=== PATIENT | female | born 2000 | race Caucasian/White ===

== ENCOUNTER 2023-12-21 17:34 | Inpatient (IN) | payer OTHER, SELFPAY ==
[2023-12-21 17:41] VITALS: BP 140/95; PULSE 101; RESP 18; TEMP 36.7; O2SAT 99; BMI 21.8
--- NOTE | 2023-12-21 17:42 | ED.PSYCH ---
HPI - Psych General Chief Complaint: Psychiatric Symptoms Stated Complaint: Si crisis Time Seen by Provider: 12/21/23 17:53 Related Data Home Medications Medication Instructions Recorded Confirmed lamotrigine 25 mg tablet mg 12/21/23 Previous Rx's Medication Instructions Recorded butenafine 1 % topical cream 1 appl topical DAILY 4 weeks #30 09/25/21 (Lotrimin Ultra) grams levofloxacin 500 mg tablet 500 mg PO DAILY 1 week #7 tabs 09/26/21 Allergies Allergy/AdvReac Type Severity Reaction Status Date / Time No Known Allergies Allergy Verified 10/04/21 11:40 [No Known Allergies*] [facility] Social History Social History Alcohol intake: current Smoked in Last 30 Days: Yes Use of substances other than those prescribed or required for medical reasons: Yes Substance Use Type: Marijuana Advance Directives: No Advance Directives Information Provided: No Patient : No Physical Exam Vital Signs: Vital Signs: Last Vital Signs Temp 98.6 F 12/22/23 02:48 Pulse 81 12/22/23 02:48 Resp 18 12/22/23 02:48 BP 111/76 12/22/23 02:48 Pulse Ox 99 12/22/23 02:48 O2 Del Method Room Air 12/22/23 02:48 BMI result Body Mass Index 21.8 Course Course Course Narrative: This is a rapid medical exam: Additional HPI, ROS, PE not included below will be deferred to primary provider. Patient is a 23-year-old female presenting to the emergency department reporting that she is having thoughts of hurting herself for the past few days. No specific plan, thoughts of cutting self or driving car into a tree. Was just started on 25mg of Lamictal 10 days ago, has had anorexia, insomnia, suicidal ideation. Plan: med clearance then CARE team eval Reevaluation(s) Reevaluation #1: Physician observation continued. VS stable, no acute events overnight inpatient bed search Time: 08:10 Medications Administered Discontinued Medications Generic Name Dose Route Start Last Admin Trade Name Freq PRN Reason Stop Dose Admin Nicotine Polacrilex 2 mg 12/21/23 21:00 12/21/23 21:34 Nicotine Polacrilex 2 Mg Gum BUCCAL 12/21/23 21:01 2 mg ONCE ONE Administration Medical Decision Making Lab Data 12/21/23 18:18 12/22/23 06:29 Labs: Lab Results 12/21/23 12/22/23 Range/Units 18:18 06:29 WBC 7.6 (4.8-10.8) X10*3/uL RBC 4.49 (4.20-5.50) X10*6/uL Hgb 13.7 (12.0-16.0) g/dl Hct 39.0 (37.0-47.0) % MCV 86.9 (80.0-98.0) fL MCH 30.5 (27.0-33.0) pg MCHC 35.1 H (31.0-35.0) g/dl RDW 12.8 (11.0-16.0) % Plt Count 363 (160-400) X10*3/uL MPV 8.7 L (9.4-12.3) fL Immature Gran % (Auto) 0.3 (0.0-0.4) % Neut % (Auto) 54.9 (45-73) % Lymph % (Auto) 38.2 (20-40) % [place] % (Auto) 5.5 (2-11) % Eos % (Auto) 0.7 (0-4) % Baso % (Auto) 0.4 (0-2) % Lymph # (Auto) 2.9 (1.2-4.9) X10*3/uL [place] # (Auto) 0.4 (0.1-1.2) X10*3/uL Eos # (Auto) 0.1 (0.0-0.4) X10*3/uL Baso # (Auto) 0.0 (0.0-0.2) X10*3/uL Abs Immat Gran (auto) 0.02 (0.00-0.03) X10*3/uL Absolute Neuts (auto) 4.2 (2.0-8.3) x10*3/uL Absolute Nucleated RBC 0.000 (0.0-0.012) X10*3/uL Nucleated RBC % (auto) 0.0 (0.0-0.2) /100WBC Sodium 142 138 (135-145) mmol/L Potassium 3.5 4.1 (3.3-5.1) mmol/L Chloride 110 H 106 (96-108) mmol/L Carbon Dioxide 17 L 22 (22-29) mmol/L Anion Gap 19 14 (12-20) BUN 12 10 (9-16) mg/dL Creatinine 0.78 0.72 (0.5-1.4) mg/dL Estim Creat Clear Calc 106.8 115.7 Estimated GFR > 60 > 60 Random Glucose 97 86 (60-115) mg/dL Calcium 9.1 8.9 (8.4-10.2) mg/dL Total Bilirubin 0.5 1.4 H (0.0-1.0) mg/dL AST 25 23 (5-31) U/L ALT 21 20 (0-31) U/L Alkaline Phosphatase 76 69 (39-117) U/L Total Protein 7.2 6.6 (6.5-8.0) g/dL Albumin 4.5 4.1 (3.5-5.0) g/dL Beta HCG, Quant < 2 mIU/mL Urine Color Yellow Urine Appearance Clear Urine pH 6.0 (5.0-9.0) Ur Specific [place] 1.020 (1.005-1.025) Urine Protein 30 (1+) H (Neg-Trace) mg/dL Urine Glucose (UA) Negative (Negative) mg/dL Urine Ketones 15 (Negative) mg/dL Urine Blood Negative (Negative) Urine Nitrite Negative (Negative) Ur Leukocyte Esterase Negative (Negative) Urine RBC 0-2 (0-2) /HPF Urine WBC 0-5 (0-5) /HPF Ur Squamous Epith Cells 3-5 (0-2) /HPF Urine Bacteria Trace (None Seen) Hyaline Casts 0-2 (0-2) /LPF Urine Test NEGATIVE (NEGATIVE) Salicylates < 5.0 L (15-30) mg/dL Urine Opiates Screen Not Detected (Not Detect) Urine Fentanyl Screen Not Detected (Not Detect) Acetaminophen < 3 (<30) mcg/mL Ur Barbiturates Screen Not Detected (Not Detect) Ur Phencyclidine Scrn Not Detected (Not Detect) Ur Amphetamines Screen Not Detected (Not Detect) U Benzodiazepines Scrn Not Detected (Not Detect) Urine Cocaine Screen Not Detected (Not Detect) U Marijuana (THC) Screen Not Detected (Not Detect) Ethyl Alcohol 259 mg/dL COVID-19 (ROÁMN) Negative (Negative) COVID-19 Clin Com See Note Discharge Plan Discharge Clinical Impression: Depression Patient Disposition: Still a Patient Prescriptions: No Action levofloxacin 500 mg tablet 500 mg PO DAILY 7 Days Qty: 7 0RF lamotrigine 25 mg tablet butenafine [Lotrimin Ultra] 1 % cream 1 appl topical DAILY 28 Days Qty: 30 1RF Interventions: [place]-Suicide Risk Severity Scale Last Done: 12/21/23 17:58
--- NOTE | 2023-12-21 18:11 | PC.NURSE ---
PATIENT DOES ADMIT TO SELF HARM HAS NOT TOLD ANYONE.
[2023-12-21 18:25] LABS: MANUAL DIFF FLAG NO
[2023-12-21 18:26] LABS: Basophils Percent Auto 0.4 % (0-2); Eosinophils Absolute Auto 0.1 X10*3/uL (0.0-0.4); Eosinophils Percent Auto 0.7 % (0-4); Hemoglobin 13.7 g/dl (12.0-16.0); Imm Gran Abs Auto 0.02 X10*3/uL (0.00-0.03); Imm Gran Pct Auto 0.3 % (0.0-0.4); Lymphocytes Absolute Auto 2.9 X10*3/uL (1.2-4.9); Lymphocytes Percent Auto 38.2 % (20-40); Mean Corpuscular HGB Conc 35.1 g/dl (31.0-35.0); Mean Corpuscular Hemoglobin 30.5 pg (27.0-33.0); Mean Corpuscular Volume 86.9 fL (80.0-98.0); Mean Platelet Volume 8.7 fL (9.4-12.3); Monocytes Absolute Auto 0.4 X10*3/uL (0.1-1.2); Monocytes Percent Auto 5.5 % (2-11); Neutrophils Absolute Auto 4.2 x10*3/uL (2.0-8.3); Neutrophils Percent Auto 54.9 % (45-73); Platelet Count 363 X10*3/uL (160-400); Red Blood Count 4.49 X10*6/uL (4.20-5.50); Red Cell Distribution Width 12.8 % (11.0-16.0); White Blood Count 7.6 X10*3/uL (4.8-10.8)
[2023-12-21 18:29] LABS: Appearance Urine Clear; Color Urine Yellow; Glucose Urine UA Negative (Negative); Leukocyte Esterase Urine Negative (Negative); Nitrite Urine Negative (Negative); UMIC TRIGGER UACC YES; Urine Blood Negative (Negative); Urine Ketones 15 mg/dL (Negative); Urine Protein 30 (1+) mg/dL (Neg-Trace)
[2023-12-21 18:30] LABS: UPreg QC Valid YES; Urine Pregnancy NEGATIVE (NEGATIVE)
--- NOTE | 2023-12-21 18:31 | PC.NURSE ---
PATIENT STATES STARTED NEW MED LAMOTRIGINE 25MG.
[2023-12-21 18:32] LABS: Bacteria Urine Trace (None Seen); Hyaline Casts Urine 0-2 /LPF (0-2); RBC Urine 0-2 /HPF (0-2); WBC Urine 0-5 /HPF (0-5)
[2023-12-21 18:40] LABS: Amphetamine Screen Urine Not Detected (Not Detect); Barbiturates, Urine Not Detected (Not Detect); Cannabinoid Screen Urine Not Detected (Not Detect); Cocaine Screen Urine Not Detected (Not Detect); Fentanyl, urine Not Detected (Not Detect); Opiate Screen Urine Not Detected (Not Detect); Phencyclidine Screen Urine Not Detected (Not Detect)
[2023-12-21 18:44] LABS: Acetaminophen LAB < 3 mcg/mL (<30); Benzodiazepines Screen Urine Not Detected (Not Detect); Salicylate < 5.0 mg/dL (15-30)
[2023-12-21 18:45] LABS: COVID-19 Test Negative (Negative); IDNOW Serial# 152EDE1D
[2023-12-21 18:50] LABS: Alanine Aminotransferase 21 U/L (0-31); Albumin Level 4.5 g/dL (3.5-5.0); Alkaline Phosphatase 76 U/L (39-117); Anion Gap 19 (12-20); Aspartate Amino Transferase 25 U/L (5-31); Bilirubin Total 0.5 mg/dL (0.0-1.0); Blood Urea Nitrogen 12 mg/dL (9-16); Calcium 9.1 mg/dL (8.4-10.2); Carbon Dioxide 17 mmol/L (22-29); Chloride 110 mmol/L (96-108); Creatinine Clr Calc Pharmacy 106.8; Estimated Glomerular Filt Rate > 60; Ethanol 259 mg/dL; Glucose Random 97 mg/dL (60-115); Potassium 3.5 mmol/L (3.3-5.1); Sodium 142 mmol/L (135-145); Total Protein 7.2 g/dL (6.5-8.0)
[2023-12-21 18:52] LABS: HCG Quantitative < 2 mIU/mL
--- NOTE | 2023-12-21 19:36 | PC.NURSE ---
assumed care at 1900@ pt talking to N at this time
[2023-12-21] MEDS: Nicotine Polacrilex 2 MG GUM BUCCAL (21:34)
--- NOTE | 2023-12-22 02:35 | ED.GENADULT ---
HPI - General Adult General Chief complaint: Psychiatric Symptoms Stated complaint: Si crisis Time Seen by Provider: 12/21/23 17:53 Source: patient Mode of arrival: ambulatory Limitations: no limitations History of Present Illness HPI narrative: 23-year-old female presents to ED for suicidal ideation. Patient would like to drive into a tree or kill herself by cutting herself. Patient also states increased drinking lately. Patient wants help. Related Data Home Medications Medication Instructions Recorded Confirmed lamotrigine 25 mg tablet 25 mg PO DAILY 12/21/23 12/22/23 Allergies Allergy/AdvReac Type Severity Reaction Status Date / Time No Known Allergies Allergy Verified 10/04/21 11:40 [No Known Allergies*] Review of Systems Review of Systems: Suicidal and depressed. Denies any physical complaint Yes all other systems are reviewed and are negative PMFSH Social History Social History Household Members: Family Alcohol intake: current Patient Tobacco Use Status: Never used Tobacco Smoked in Last 30 Days: Yes e-Cigarette/Vaping Use: Currently Using Frequency of e-Cigarette/Vaping Use: daily Patient Interested in Nicotine Replacement: Yes (lozenge) Patient Given Instructions on How to Stop Smoking: No Second Hand Smoke Exposure: No Use of substances other than those prescribed or required for medical reasons: Yes Substance Use Type: Marijuana Substance Use Frequency: Socially Last Used Substance: Days (ago) Currently Displaying Signs/Symptoms of Drug Intoxication Withdrawal: No Any prior treatment program specific to substance use: No Have you been hit, kicked, punched, or otherwise hurt by someone within the past year? If so, by whom?: No Do you feel safe in your current relationship?: Yes Is there a partner from a previous relationship who is making you feel unsafe now?: No Are you made to feel afraid or neglected: No Advance Directives: No Advance Directives Information Provided: No Do you have thoughts of harming others: None Do you have a plan to hurt others: No Plan Recently lost weight without trying: No Eating poorly because of decreased appetite: Yes Nutrition Risks: No Nutritional Risk Patient : No : No Poor oral hygiene: No Physical Exam ED Vital Signs: Vital Signs - 24 hr 12/21/23 17:41 12/22/23 02:48 12/22/23 09:49 Temperature 98.0 F 98.6 F 99.1 F Pulse Rate 101 H 81 80 Respiratory Rate 18 18 18 Blood Pressure 140/95 H 111/76 115/65 Pulse Oximetry 99 99 99 Oxygen Delivery Method Room Air Room Air Room Air BMI result Body Mass Index 21.8 Const General: cooperative, healthy appearing, comfortable, no acute distress, well developed, alert, awake and Physically active Orientation/consciousness: oriented to person, oriented to place, oriented to time and patient oriented x3 [facility] Head: Yes normal to inspection, Yes No palpable skull fracture present, Yes normocephalic, Yes atraumatic and No abrasion Eyes General: appearance normal, both eyes and all related structures Neck Neck: Yes normal visual inspection, Yes full ROM, Yes no lymphadenopathy, Yes no meningeal signs, Yes trachea midline, Yes supple, No anterior neck swelling and No tender Chest Chest palpation & inspection: normal inspection of the chest and normal palpation of entire chest wall Resp Effort & Inspection: normal respiratory effort and able to speak in complete sentences Auscultation: clear to auscultation bilaterally Cardio Jugular venous distension: no JVD Heart sounds: S1 normal heart sound present and S2 normal heart sound present GI Inspection: Yes normal to inspection Palpation (GI): Soft to palpation, not firm, nontender, no guarding and not rigid General: No CVA tenderness and Yes no CVA tenderness Back/Spine/Pelvis Back: no CVA tenderness, No CVA tenderness and No back tenderness Skin General skin exam: no rashes or lesions noted, elasticity normal and turgor normal Neuro General: oriented to person, oriented to place, oriented to time, patient oriented x3, gait normal, tone normal, moves all extremities, Normal light touch and pain sensation, no meningeal signs, no focal motor deficits, CN's II-XI intact bilaterally and normal sensation to monofilament Extrem General: Yes normal to inspection and Yes full ROM Psych Appearance: grossly normal, well kempt and not disheveled Medications Administered Generic Name Dose Route Start Last Admin Trade Name Freq PRN Reason Stop Dose Admin Lorazepam 1 mg 12/22/23 14:11 12/22/23 14:39 Lorazepam 1 Mg Tablet PO 1 mg Q2H PRN Administration CIWA 6-12 Discontinued Medications Generic Name Dose Route Start Last Admin Trade Name Freq PRN Reason Stop Dose Admin Nicotine Polacrilex 2 mg 12/21/23 21:00 12/21/23 21:34 Nicotine Polacrilex 2 Mg Gum BUCCAL 12/21/23 21:01 2 mg ONCE ONE Administration Medical Decision Making Medical Decision Making MDM Narrative: 23-year-old female presents to ED for suicidal ideation and depression. Patient seen and evaluated by care team consult who states patient is a voluntary admission. Patient has been stable and not any distress. Carbon dioxide 17. Rest of electrolytes are normal. Patient does have history of alcoholism. Patient drinking plenty of oral fluids. Not in any distress or withdrawal. Will repeat chemistry in the morning. patient is a [place] admission as per Care TEAM. Differential Diagnosis Differential Diagnoses: The differential diagnosis associated with the presentation includes (Depression suicidal) Consult Healthcare Provider Management of the patient was discussed with: Career Technical Education Teacher (Care team) Lab Data [facility] Lab Attestation statement: I reviewed the patient's lab results. 12/21/23 18:18 12/22/23 06:29 Labs: Lab Results 12/21/23 12/22/23 Range/Units 18:18 06:29 WBC 7.6 (4.8-10.8) X10*3/uL RBC 4.49 (4.20-5.50) X10*6/uL Hgb 13.7 (12.0-16.0) g/dl Hct 39.0 (37.0-47.0) % MCV 86.9 (80.0-98.0) fL MCH 30.5 (27.0-33.0) pg MCHC 35.1 H (31.0-35.0) g/dl RDW 12.8 (11.0-16.0) % Plt Count 363 (160-400) X10*3/uL MPV 8.7 L (9.4-12.3) fL Immature Gran % (Auto) 0.3 (0.0-0.4) % Neut % (Auto) 54.9 (45-73) % Lymph % (Auto) 38.2 (20-40) % [place] % (Auto) 5.5 (2-11) % Eos % (Auto) 0.7 (0-4) % Baso % (Auto) 0.4 (0-2) % Lymph # (Auto) 2.9 (1.2-4.9) X10*3/uL [place] # (Auto) 0.4 (0.1-1.2) X10*3/uL Eos # (Auto) 0.1 (0.0-0.4) X10*3/uL Baso # (Auto) 0.0 (0.0-0.2) X10*3/uL Abs Immat Gran (auto) 0.02 (0.00-0.03) X10*3/uL Absolute Neuts (auto) 4.2 (2.0-8.3) x10*3/uL Absolute Nucleated RBC 0.000 (0.0-0.012) X10*3/uL Nucleated RBC % (auto) 0.0 (0.0-0.2) /100WBC Sodium 142 138 (135-145) mmol/L Potassium 3.5 4.1 (3.3-5.1) mmol/L Chloride 110 H 106 (96-108) mmol/L Carbon Dioxide 17 L 22 (22-29) mmol/L Anion Gap 19 14 (12-20) BUN 12 10 (9-16) mg/dL Creatinine 0.78 0.72 (0.5-1.4) mg/dL Estim Creat Clear Calc 106.8 115.7 Estimated GFR > 60 > 60 Random Glucose 97 86 (60-115) mg/dL Calcium 9.1 8.9 (8.4-10.2) mg/dL Total Bilirubin 0.5 1.4 H (0.0-1.0) mg/dL AST 25 23 (5-31) U/L ALT 21 20 (0-31) U/L Alkaline Phosphatase 76 69 (39-117) U/L Total Protein 7.2 6.6 (6.5-8.0) g/dL Albumin 4.5 4.1 (3.5-5.0) g/dL Beta HCG, Quant < 2 mIU/mL Urine Color Yellow Urine Appearance Clear Urine pH 6.0 (5.0-9.0) Ur Specific [place] 1.020 (1.005-1.025) Urine Protein 30 (1+) H (Neg-Trace) mg/dL Urine Glucose (UA) Negative (Negative) mg/dL Urine Ketones 15 (Negative) mg/dL Urine Blood Negative (Negative) Urine Nitrite Negative (Negative) Ur Leukocyte Esterase Negative (Negative) Urine RBC 0-2 (0-2) /HPF Urine WBC 0-5 (0-5) /HPF Ur Squamous Epith Cells 3-5 (0-2) /HPF Urine Bacteria Trace (None Seen) Hyaline Casts 0-2 (0-2) /LPF Urine Test NEGATIVE (NEGATIVE) Salicylates < 5.0 L (15-30) mg/dL Urine Opiates Screen Not Detected (Not Detect) Urine Fentanyl Screen Not Detected (Not Detect) Acetaminophen < 3 (<30) mcg/mL Ur Barbiturates Screen Not Detected (Not Detect) Ur Phencyclidine Scrn Not Detected (Not Detect) Ur Amphetamines Screen Not Detected (Not Detect) U Benzodiazepines Scrn Not Detected (Not Detect) Urine Cocaine Screen Not Detected (Not Detect) U Marijuana (THC) Screen Not Detected (Not Detect) Ethyl Alcohol 259 mg/dL COVID-19 (ROMÁN) Negative (Negative) COVID-19 Clin Com See Note Independent Historian Clinical information obtained from an independent historian. History obtained from or confirmed by: Other (Patient) External Record Review External record reviewed: Other (Prior visit) Discharge Plan Discharge Clinical Impression: Depression Patient Disposition: Still a Patient Interventions: Admission Worksheet (ED) Last Done: 12/22/23 13:42 Discharge Date/Time: 12/22/23 13:43
[2023-12-22 02:48] VITALS: BP 111/76; PULSE 81; RESP 18; TEMP 37; O2SAT 99
[2023-12-22 07:01] LABS: Alanine Aminotransferase 20 U/L (0-31); Albumin Level 4.1 g/dL (3.5-5.0); Alkaline Phosphatase 69 U/L (39-117); Anion Gap 14 (12-20); Aspartate Amino Transferase 23 U/L (5-31); Bilirubin Total 1.4 mg/dL (0.0-1.0); Blood Urea Nitrogen 10 mg/dL (9-16); Calcium 8.9 mg/dL (8.4-10.2); Carbon Dioxide 22 mmol/L (22-29); Chloride 106 mmol/L (96-108); Creatinine Clr Calc Pharmacy 115.7; Estimated Glomerular Filt Rate > 60; Glucose Random 86 mg/dL (60-115); Potassium 4.1 mmol/L (3.3-5.1); Sodium 138 mmol/L (135-145); Total Protein 6.6 g/dL (6.5-8.0)
--- NOTE | 2023-12-22 07:30 | PC.NURSE ---
Pt's mother in to visit. Pleasant visit observed.
[2023-12-22 09:49] VITALS: BP 115/65; PULSE 80; RESP 18; TEMP 37.3; O2SAT 99
--- NOTE | 2023-12-22 12:30 | PC.NURSE ---
Nurse to nurse given to Jeannette. Pt will be transferred to M3 unit in about an hour.
[2023-12-22 13:50] VITALS: BP 128/72; PULSE 76; RESP 16; TEMP 37; O2SAT 98
[2023-12-22] MEDS: LORazepam 1 MG TABLET PO (14:39)
[2023-12-22 15:40] VITALS: BMI 22.1
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
[2023-12-22 20:00] VITALS: BP 105/64; PULSE 70; RESP 16; TEMP 36.8; O2SAT 98
[2023-12-23 07:45] VITALS: BP 107/71; PULSE 83; RESP 18; TEMP 36.6; O2SAT 97
[2023-12-23 08:35] LABS: Alanine Aminotransferase 19 U/L (0-31); Albumin Level 4.3 g/dL (3.5-5.0); Alkaline Phosphatase 71 U/L (39-117); Anion Gap 14 (12-20); Aspartate Amino Transferase 22 U/L (5-31); Bilirubin Total 1.4 mg/dL (0.0-1.0); Blood Urea Nitrogen 10 mg/dL (9-16); Calcium 9.1 mg/dL (8.4-10.2); Carbon Dioxide 21 mmol/L (22-29); Chloride 107 mmol/L (96-108); Cholesterol 156 mg/dL (<200); Estimated Glomerular Filt Rate > 60; Glucose Fasting 89 mg/dL (60-99); HDL Cholesterol 72 mg/dL (>40); LDL Cholesterol Calculated 70 mg/dL (<100); Potassium 4.3 mmol/L (3.3-5.1); Sodium 138 mmol/L (135-145); Triglycerides 71 mg/dL (<150)
[2023-12-23] MEDS: Folic Acid 1 MG TABLET PO (08:51)
[2023-12-23] MEDS: Thiamine HCL 100 MG TABLET PO (08:51)
[2023-12-23] MEDS: Multivitamin TABLET 1 TAB PO (08:51)
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
[2023-12-23] MEDS: Naltrexone HCl 50 MG TABLET 25 MG PO (12:34)
--- NOTE | 2023-12-23 15:03 | MHC.RECOVRN ---
Met with pt on M3 after consult placed to Addiction Medicine for alcohol use. Pt had presented to the ED for increased SI and depression. Upon evaluation, pt admitted for mood disorder, PTSD, and suicidality. Pt awake, alert, easily engages in conversation. Pt reports binge drinking since age 18, had first drink at age 16. Reports family hx alcohol use. During a binge, pt reports drinking 10+ nips daily x a few days. Pt reports various amounts of time in between periods of alcohol use. Pt denies withdrawal symptoms, denies hx seizures. The longest period of time pt has consumed alcohol daily was in February 2023 x 6 months. 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 Pt reports having supportive family, friends, and partner. Pt reports partner drinks socially. Pt has never sought tx for alcohol use. Discussed recovery support options and resources, pt interested in [facility], specifically naltrexone. Pt would like to initiate medication while inpatient if possible and continue treatment at the [facility]. Provided pt with written resources as well as t/w contact information if needed. Pt denies questions or concerns. Discussed with Simran Nascimento APRN. Pt has [facility] intake appt 12/28 at 2PM, SW aware.
[2023-12-23] MEDS: Divalproex Sodium 250 MG TABLET.DR PO ×2 (16:39→20:38)
[2023-12-23] MEDS: QUEtiapine Fumarate 25 MG TABLET PO ×2 (16:39→20:38)
[2023-12-23 20:05] VITALS: BP 114/63; PULSE 70; RESP 16; TEMP 36.6; O2SAT 98
[2023-12-24 07:25] VITALS: BP 97/65; PULSE 74; RESP 16; TEMP 36.3; O2SAT 97
[2023-12-24] MEDS: Naltrexone HCl 50 MG TABLET 25 MG PO (08:30)
[2023-12-24] MEDS: Multivitamin TABLET 1 TAB PO (08:31)
[2023-12-24] MEDS: Folic Acid 1 MG TABLET PO (08:31)
[2023-12-24] MEDS: Thiamine HCL 100 MG TABLET PO (08:31)
[2023-12-24] MEDS: Divalproex Sodium 250 MG TABLET.DR PO ×2 (08:31→20:57)
[2023-12-24] MEDS: QUEtiapine Fumarate 25 MG TABLET PO ×2 (08:31→20:57)
[2023-12-24 19:45] VITALS: BP 118/79; PULSE 77; RESP 14; TEMP 36.8; O2SAT 98
--- NOTE | 2023-12-24 21:24 | HO.PSYCHPN ---
Subjective Subjective Date of Service: 12/24/23 Reason For Visit: si depression Subjective Notes: Conditional Voluntary and 3 Day Interim History: Pt seen in psychiatric follow-up. Patient has been cooperative she does have a 3 day notice. She is denying active self-harm. She was started on quetiapine 25 twice a day Depakote 250 b.i.d. she is agreeable to [facility] program Medication Compliance: Yes Mental Status Exam Mental Status Exam Narrative: Pt is alert and oriented; behavior is cooperative, tearful and calm; dressed in casual attire; mood is described as anxious and depressed ; eye contact appropriate; Speech is normal rate, volume and prosody and not pressured; thought process is organized and goal directed; Thought content is on tx and diagnosis otherwise pertinent to relevant topics and without any delusional content, paranoid ideations or grandiosity; denies SI/HI/VH/AH.seems motivated for tx Diagnostics Vital Signs (24Hr): Vital Signs - 24 hr 12/24/23 07:25 12/24/23 19:45 Temperature 97.3 F 98.2 F Pulse Rate 74 77 Respiratory Rate 16 14 Blood Pressure 97/65 118/79 Pulse Oximetry 97 98 Oxygen Delivery Method Room Air Room Air BMI result Body Mass Index 22.1 Labs 12/21/23 18:18 12/23/23 07:53 Labs: Laboratory Results - last 48 hr 12/23/23 07:53 Sodium 138 Potassium 4.3 Chloride 107 Carbon Dioxide 21 L Anion Gap 14 BUN 10 Creatinine 0.70 Estim Creat Clear Calc 119.0 Estimated GFR > 60 Fasting Glucose 89 Calcium 9.1 Total Bilirubin 1.4 H AST 22 ALT 19 Alkaline Phosphatase 71 Total Protein 7.0 Albumin 4.3 Triglycerides 71 Cholesterol 156 LDL Cholesterol, Calc 70 HDL Cholesterol 72 Medications Medications Current Medications Acetaminophen (Acetaminophen 325 Mg Tablet) 650 mg PO Q6H PRN PRN Reason: Headache/Pain Mild Scale (1-3) Al Hydroxide/Mg Hydroxide (Magnesium Hydrox/Alum Hydrox 30 Ml Oral.Susp) 30 ml PO Q6H PRN PRN Reason: Heartburn/Nausea Divalproex Sodium (Divalproex Sodium 250 Mg Tablet.) 250 mg PO BID [facility] Last Admin: 12/24/23 20:57 Dose: 250 mg Folic Acid (Folic Acid 1 Mg Tablet) 1 mg PO DAILY [facility] Last Admin: 12/24/23 08:31 Dose: 1 mg Hydroxyzine HCl (Hydroxyzine Hcl 25 Mg Tablet) 25 mg PO Q6H PRN PRN Reason: Anxiety Lorazepam (Lorazepam 1 Mg Tablet) 1 mg PO Q2H PRN PRN Reason: CIWA 6-12 Last Admin: 12/22/23 14:39 Dose: 1 mg Lorazepam (Lorazepam 1 Mg Tablet) 2 mg PO Q2H PRN PRN Reason: CIWA 13 and above Magnesium Hydroxide (Milk Of Magnesia 30 Ml Oral.Susp) 30 ml PO DAILY PRN PRN Reason: Constipation Multivitamins/Vitamin C (Multivitamin Tablet) 1 tab PO DAILY [facility] Last Admin: 12/24/23 08:31 Dose: 1 tab Naltrexone HCl (Naltrexone Hcl 50 Mg Tablet) 25 mg PO DAILY [facility] Stop: 12/25/23 09:01 Last Admin: 12/24/23 08:30 Dose: 25 mg Naltrexone HCl (Naltrexone Hcl 50 Mg Tablet) 50 mg PO DAILY [facility] Nicotine Polacrilex (Nicotine Polacrilex 2 Mg Gum) 4 mg BUCCAL Q2H PRN PRN Reason: Nicotine Cravings Ondansetron HCl (Ondansetron Odt 4 Mg Tab.Rapdis) 4 mg TRANSLINGU Q8H PRN PRN Reason: Nausea and Vomiting Quetiapine Fumarate (Quetiapine Fumarate 25 Mg Tablet) 25 mg PO BID [facility] Last Admin: 12/24/23 20:57 Dose: 25 mg Thiamine HCl (Thiamine Hcl 100 Mg Tablet) 100 mg PO DAILY [facility] Last Admin: 12/24/23 08:31 Dose: 100 mg Trazodone HCl (Trazodone Hcl 50 Mg Tablet) 50 mg PO BEDTIME MRX1 PRN PRN Reason: Insomnia Allergies Allergies Allergy/AdvReac Type Severity Reaction Status Date / Time No Known Allergies Allergy Verified 10/04/21 11:40 [No Known Allergies*] Assessment & Plan Assessment & Plan (1) Bipolar 2 disorder: Status: Acute Code(s): F31.81 - Bipolar II disorder (2) PTSD (post-traumatic stress disorder): Status: Acute Code(s): F43.10 - Post-traumatic stress disorder, unspecified (3) ETOH abuse: Status: Acute Code(s): F10.10 - Alcohol abuse, uncomplicated Plan Patient is a 23 year old female with hx of Bipolar d/o and ETOH abuse who self presented to ER d/t suicidal ideation secondary to increased depressive symptoms and alcohol use. Plan: CV 15 minute safety checks [facility] addiction medicine consult start: depakote 250mg PO BID Seroquel 25mg PO BID 12/24/23 Patient given literature to review continue Depakote quetiapine patient's 3 day notice states wants to do partial hospital was started on naltrexone Reason for continued inpatient stay Substantial Risk for: harm to self and rapid decompensation Time Spent With Patient Time: Total time managing care of this patient today ____ minutes.
[2023-12-25 07:00] VITALS: BMI 22.2
[2023-12-25 07:40] VITALS: BP 111/63; PULSE 75; RESP 14; TEMP 36.8; O2SAT 100
[2023-12-25] MEDS: Naltrexone HCl 50 MG TABLET 25 MG PO (08:01)
[2023-12-25] MEDS: Folic Acid 1 MG TABLET PO (08:02)
[2023-12-25] MEDS: Thiamine HCL 100 MG TABLET PO (08:02)
[2023-12-25] MEDS: QUEtiapine Fumarate 25 MG TABLET PO ×2 (08:02→21:02)
[2023-12-25] MEDS: Divalproex Sodium 250 MG TABLET.DR PO ×2 (08:02→21:02)
[2023-12-25] MEDS: Multivitamin TABLET 1 TAB PO (08:02)
[2023-12-25 09:37] LABS: Valproate 42.3 mcg/mL (50.0-100.0)
--- NOTE | 2023-12-25 11:56 | HO.PSYCHPN ---
Subjective Subjective Date of Service: 12/25/23 Reason For Visit: si depression Subjective Notes: 3 Day Interim History: Reviewed with Dr. Anne. Active on unit, attending groups, social with peers. pt reports feeling good today; pt stated, I'm looking forward to going home and being with my family and dog . Pt reports she plans on following up with her outpatient providers and attending PHP. Pt stated, I feel better than when I first came in here . Valproic acid level 42.3 on 12/25/23. pt to be discharged on 3 day tomorrow. Medication Compliance: Yes Side effects from medications: No Attending Groups: Yes Review of Systems Constitutional: Reports as per HPI Eyes: Reports as per HPI Reports as per HPI Cardiovascular: Reports as per HPI Respiratory: Reports as per HPI Gastrointestinal: Reports as per HPI Musculoskeletal: Reports as per HPI Skin/Breast: Reports as per HPI Reports as per HPI Psychiatric: Reports as per HPI Endocrine: Reports as per HPI Hematologic/Lymphatic: Reports as per HPI Allergic/Immunologic: Reports as per HPI Mental Status Exam Mental Status Exam Narrative: Pt is alert and oriented; behavior is cooperative, tearful and calm; dressed in casual attire; mood is described as good ; eye contact appropriate; Speech is normal rate, volume and prosody and not pressured; thought process is organized and goal directed; Thought content is on tx; denies SI/HI/VH/AH Diagnostics Vital Signs (24Hr): Vital Signs - 24 hr 12/24/23 19:45 12/25/23 07:40 Temperature 98.2 F 98.2 F Pulse Rate 77 75 Respiratory Rate 14 14 Blood Pressure 118/79 111/63 Pulse Oximetry 98 100 Oxygen Delivery Method Room Air Room Air BMI result Body Mass Index 22.2 Labs 12/21/23 18:18 12/23/23 07:53 Labs: Laboratory Results - last 48 hr 12/25/23 08:36 Valproic Acid 42.3 L Medications Medications Current Medications Acetaminophen (Acetaminophen 325 Mg Tablet) 650 mg PO Q6H PRN PRN Reason: Headache/Pain Mild Scale (1-3) Al Hydroxide/Mg Hydroxide (Magnesium Hydrox/Alum Hydrox 30 Ml Oral.Susp) 30 ml PO Q6H PRN PRN Reason: Heartburn/Nausea Divalproex Sodium (Divalproex Sodium 250 Mg Tablet.) 250 mg PO BID [facility] Last Admin: 12/25/23 08:02 Dose: 250 mg Folic Acid (Folic Acid 1 Mg Tablet) 1 mg PO DAILY [facility] Last Admin: 12/25/23 08:02 Dose: 1 mg Hydroxyzine HCl (Hydroxyzine Hcl 25 Mg Tablet) 25 mg PO Q6H PRN PRN Reason: Anxiety Lorazepam (Lorazepam 1 Mg Tablet) 1 mg PO Q2H PRN PRN Reason: CIWA 6-12 Last Admin: 12/22/23 14:39 Dose: 1 mg Lorazepam (Lorazepam 1 Mg Tablet) 2 mg PO Q2H PRN PRN Reason: CIWA 13 and above Magnesium Hydroxide (Milk Of Magnesia 30 Ml Oral.Susp) 30 ml PO DAILY PRN PRN Reason: Constipation Multivitamins/Vitamin C (Multivitamin Tablet) 1 tab PO DAILY [facility] Last Admin: 12/25/23 08:02 Dose: 1 tab Naltrexone HCl (Naltrexone Hcl 50 Mg Tablet) 50 mg PO DAILY [facility] Nicotine Polacrilex (Nicotine Polacrilex 2 Mg Gum) 4 mg BUCCAL Q2H PRN PRN Reason: Nicotine Cravings Ondansetron HCl (Ondansetron Odt 4 Mg Tab.Rapdis) 4 mg TRANSLINGU Q8H PRN PRN Reason: Nausea and Vomiting Quetiapine Fumarate (Quetiapine Fumarate 25 Mg Tablet) 25 mg PO BID [facility] Last Admin: 12/25/23 08:02 Dose: 25 mg Thiamine HCl (Thiamine Hcl 100 Mg Tablet) 100 mg PO DAILY [facility] Last Admin: 12/25/23 08:02 Dose: 100 mg Trazodone HCl (Trazodone Hcl 50 Mg Tablet) 50 mg PO BEDTIME MRX1 PRN PRN Reason: Insomnia Allergies Allergies Allergy/AdvReac Type Severity Reaction Status Date / Time No Known Allergies Allergy Verified 10/04/21 11:40 [No Known Allergies*] Assessment & Plan Assessment & Plan (1) Bipolar 2 disorder: Status: Acute Code(s): F31.81 - Bipolar II disorder (2) PTSD (post-traumatic stress disorder): Status: Acute Code(s): F43.10 - Post-traumatic stress disorder, unspecified (3) ETOH abuse: Status: Acute Code(s): F10.10 - Alcohol abuse, uncomplicated Plan Patient is a 23 year old female with hx of Bipolar d/o and ETOH abuse who self presented to ER d/t suicidal ideation secondary to increased depressive symptoms and alcohol use. Plan: CV 15 minute safety checks [facility] addiction medicine consult start: depakote 250mg PO BID Seroquel 25mg PO BID 12/23: Patient given literature to review continue Depakote quetiapine patient's 3 day notice states wants to do partial hospital was started on naltrexone. 12/24: Active on unit, attending groups, social with peers. pt reports feeling good today; pt stated, I'm looking forward to going home and being with my family and dog . Pt reports she plans on following up with her outpatient providers and attending PHP. Pt stated, I feel better than when I first came in here . Valproic acid level 42.3 on 12/25/23. pt to be discharged on 3 day tomorrow. Patient educated on: diagnosis, medication risk/benefits, substance abuse and therapeutic strategies Informed Consent: understands Reason for continued inpatient stay Substantial Risk for: stable for discharge Time Spent With Patient Time: Total time managing care of this patient today _20___ minutes.
[2023-12-25 21:00] VITALS: BP 125/71; PULSE 83; RESP 16; TEMP 36.7; O2SAT 99
[2023-12-25] MEDS: Nicotine Polacrilex 2 MG GUM 4 MG BUCCAL (21:03)
[2023-12-25] MEDS: traZODone HCL 50 MG TABLET PO (21:04)
[2023-12-26 06:00] VITALS: BP 106/72; PULSE 80; RESP 20; TEMP 36.2; O2SAT 95
[2023-12-26] MEDS: Multivitamin TABLET 1 TAB PO (08:07)
[2023-12-26] MEDS: Thiamine HCL 100 MG TABLET PO (08:07)
[2023-12-26] MEDS: QUEtiapine Fumarate 25 MG TABLET PO (08:07)
[2023-12-26] MEDS: Naltrexone HCl 50 MG TABLET PO (08:07)
[2023-12-26] MEDS: Divalproex Sodium 250 MG TABLET.DR PO (08:07)
[2023-12-26] MEDS: Folic Acid 1 MG TABLET PO (08:07)
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
== END 2023-12-26 10:05 | disposition home or self-care (01) | DRG 753 ==
LOC: HO.ED 12-22 02:50 → HO.PADLT16 12-22 12:17
PROVIDERS: Physician Assistant; Registered Nurse Emergency; Admitting Provider Registered Nurse; Emergency Provider Internal Medicine; Responsible Provider Registered Nurse; Visit Provider Psychiatry & Neurology Psychiatry
DX: F31.81 Bipolar II disorder (principal); R45.851 Suicidal ideations; F10.10 Alcohol abuse, uncomplicated; F43.10 Post-traumatic stress disorder, unspecified; Y90.8 Blood alcohol level of 240 mg/100 ml or more; Z20.822 Contact with and (suspected) exposure to COVID-19; Z23 Encounter for immunization; Z62.810 Personal history of physical and sexual abuse in childhood; Z79.899 Other long term (current) drug therapy
CPT/HCPCS: 36415; 80053; 80061; 80143; 80164; 80179; 80307; 81001; 81025; 84702; 85025; 87635; 90686; 99285; S9485

== ENCOUNTER → 2023-12-22 12:04 | Outpatient (BNV) | payer OTHER, SELFPAY | PROVIDERS: Admitting Provider Registered Nurse; Emergency Provider Internal Medicine; Responsible Provider Registered Nurse; Visit Provider Registered Nurse | DX: F31.81 Bipolar II disorder (principal); F43.11 Post-traumatic stress disorder, acute; F10.10 Alcohol abuse, uncomplicated | CPT/HCPCS: 90792; 99231; 99238 ==

== ENCOUNTER → 2023-12-22 12:04 | Outpatient (BNV) | payer OTHER, SELFPAY | PROVIDERS: Admitting Provider Registered Nurse; Emergency Provider Internal Medicine; Responsible Provider Registered Nurse; Visit Provider Psychiatry & Neurology Psychiatry | DX: F31.81 Bipolar II disorder (principal); F43.11 Post-traumatic stress disorder, acute; F10.10 Alcohol abuse, uncomplicated | CPT/HCPCS: 99232 ==

== ENCOUNTER 2023-12-29 14:04 | Outpatient (AMB) | payer OTHER, SELFPAY ==
--- NOTE | 2023-12-29 14:13 | MHC.AM.SUB ---
Intake Vital Signs 12/29/23 14:20 BP 108/70 Blood Pressure Location Lt radial Position Sitting Pulse 76 Pulse Source Pulse Oximeter Pulse Oximetry (%) 99 Oxygen Delivery Method Room Air Intake Visit Reasons: MAT Intake Note: the patient presents for a mat visit Webbing Weaver Required: No Allergies No Known Allergies [No Known Allergies*] Allergy (Verified 12/29/23 14:21) Do you need a note to return to daycare/school/sports/work: No HPI MAT HPI Details Patient presents for intake as referral from [facility] She was recently discharged from inpatient psych at [facility] Has no PCP, unsure when last visit was Social Hx: 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 Stably housed- lives at home with her parents and sibling Has no chilldren Support system is identified as her family, friends, and girlfriend Substance hx: Started drinking when she was 16 yo at parties Reports was able to stop drinking for a long time after she [place] in [place] She relapsed last year when she turned 23, was drinking 2-3 days a week 1-2 sleeves of tequila Past 2-3 weeks her alcohol use escalated to daily She denies hx of withdrawal related seizures but did find she was drinking to stop the shakes a couple of months ago Past use of: cocaine Smokes marijuana occasionally No tobacco use, but vapes- started at 19yo BH Hx: Is currently attending PHP through [facility] Therapist: Britni Kim Psychiatrist: Dr. Flower Lay Dx hx: anxiety, depression (Bi-polar mixed), PTSD 1 psych hospitalization (recently d/c) NKA No surgical hx LMP- unsure- she has IUD and does not menstruate PFSH Social History Household Members: Family Alcohol intake: current Patient Tobacco Use Status: Never used Tobacco e-Cigarette/Vaping Use: Currently Using Second Hand Smoke Exposure: No Substance Use Type: Marijuana service: No Sexual orientation: Don't Know Review of Systems Const Reports as per HPI Physical Exam Vital Signs: Last Vital Signs Pulse 76 12/29/23 14:20 BP 108/70 12/29/23 14:20 Pulse Ox 99 12/29/23 14:20 Oxygen Delivery Method Room Air 12/29/23 14:20 Const General: cooperative and healthy appearing Resp Effort & Inspection: normal respiratory effort Psych Appearance: grossly normal Mental Status: mental status grossly normal Speech and movement: Normal speech and movement present Affect: normal affect Attitude: cooperative Assessment & Plan Assessment & Plan (1) Alcohol use disorder, severe, dependence: Code(s): F10.20 - Alcohol dependence, uncomplicated Plan: -Discussed recovery supports, provided lists of AA meeting locations -Rx for thiamine and folic acid (med education provided) -Follow up 1 week Medications: New folic acid 1 mg PO DAILY 30 tabs 3RF thiamine HCl (vitamin B1) 100 mg PO DAILY 30 tabs 3RF Coding Level of Care Code New Pt Level 4 (46848) Diagnoses Alcohol use disorder, severe, dependence F10.20
[2023-12-29 14:20] VITALS: BP 108/70; PULSE 76; O2SAT 99
== END 2023-12-29 14:55 | disposition home or self-care (01) ==
PROVIDERS: Visit Provider Nurse Practitioner Family
DX: F10.20 Alcohol dependence, uncomplicated (principal)
CPT/HCPCS: 99204

== ENCOUNTER → 2023-12-29 14:04 | Outpatient (BNVA) | payer OTHER, SELFPAY | PROVIDERS: Visit Provider Nurse Practitioner Family ==

== ENCOUNTER 2024-01-05 13:50 | Outpatient (AMB) | payer OTHER, SELFPAY ==
--- NOTE | 2024-01-05 13:59 | MHC.AM.SUB ---
Intake Vital Signs 01/05/24 14:05 BP 102/74 Blood Pressure Location Lt radial Position Sitting Pulse 79 Pulse Source Pulse Oximeter Pulse Oximetry (%) 99 Oxygen Delivery Method Room Air Intake Visit Reasons: MAT Intake Note: The patient is here for a mat visit Insulation Blower Required: No Allergies No Known Allergies [No Known Allergies*] Allergy (Verified 01/05/24 14:00) Do you need a note to return to daycare/school/sports/work: No HPI MAT HPI Details Patient presents for AUD tx and follow up Reports she has been taking naltrexone with no concerns for side effects Would like to continue with her PO naltrexone for now Is unsure what recovery supports she would like Is not doing partial due to work schedule conflicts 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[email or web address] [facility] Social History Household Members: Family Alcohol intake: current Patient Tobacco Use Status: Never used Tobacco e-Cigarette/Vaping Use: Currently Using Second Hand Smoke Exposure: No Substance Use Type: Marijuana service: No Sexual orientation: Don't Know Review of Systems Const Reports as per HPI Physical Exam Vital Signs: Last Vital Signs Pulse 79 01/05/24 14:05 BP 102/74 01/05/24 14:05 Pulse Ox 99 01/05/24 14:05 Oxygen Delivery Method Room Air 01/05/24 14:05 Psych Appearance: grossly normal Mental Status: mental status grossly normal Speech and movement: Normal speech and movement present Affect: normal affect Thought process: Normal thought process present Results AMB 14 Panel Urine Drug Screen Urine Marijuana (THC) Negative Last Edit by Joyce Pugh CMA on 01/05/24 14:07 Urine Cocaine Negative Last Edit by Joyce Pugh CMA on 01/05/24 14:07 Urine Morphine Negative Last Edit by Joyce Pugh CMA on 01/05/24 14:07 Urine Methamphetamine Negative Last Edit by Joyce Pugh CMA on 01/05/24 14:07 Urine Amphetamine Negative Last Edit by Joyce Pugh CMA on 01/05/24 14:07 Urine Benzodiazepine Negative Last Edit by Joyce Pugh CMA on 01/05/24 14:07 Urine Barbiturates Negative Last Edit by Joyce Pugh CMA on 01/05/24 14:07 Urine Methadone Negative Last Edit by Joyce Pugh CMA on 01/05/24 14:07 Urine Buprenorphine Negative Last Edit by Joyce Pugh CMA on 01/05/24 14:07 Urine Tricyclic Antidepressant Negative Last Edit by Joyce Pugh CMA on 01/05/24 14:07 Urine MDMA Negative Last Edit by Joyce Pugh CMA on 01/05/24 14:07 Urine Oxycodone Positive Last Edit by Joyce Pugh CMA on 01/05/24 14:07 Urine Phencyclidine Negative Last Edit by Joyce Pugh CMA on 01/05/24 14:07 Urine Propoxyphene Negative Last Edit by Joyce Pugh CMA on 01/05/24 14:07 Results Reviewed Results Reviewed: Laboratory Last Values POC Urine Buprenorphine Negative 01/05/24 14:00 POC Urine Morphine Negative 01/05/24 14:00 POC Urine Oxycodone Positive 01/05/24 14:00 POC Urine Methadone Negative 01/05/24 14:00 POC Urine Propoxyphene Negative 01/05/24 14:00 POC Urine Barbiturates Negative 01/05/24 14:00 POC U Tricyclic Antidpr Negative 01/05/24 14:00 POC Urine PCP Negative 01/05/24 14:00 POC Ur Amphetamines Negative 01/05/24 14:00 POC Ur Methamphetamine Negative 01/05/24 14:00 POC Urine MDMA Negative 01/05/24 14:00 POC Ur Benzodiazepine Negative 01/05/24 14:00 POC Urine Cocaine Negative 01/05/24 14:00 POC Ur Marijuana (THC) Negative 01/05/24 14:00 Assessment & Plan Assessment & Plan (1) Alcohol use disorder, severe, dependence: Code(s): F10.20 - Alcohol dependence, uncomplicated Plan: -Discussed recovery supports -Encouraged her to call [facility] with questions or concerns -Follow up 2 weeks Orders: Orders AMB 14 Panel Urine Drug Screen Today Z51.81 - Encounter for therapeutic drug level monitoring Coding Level of Care Code Est Pt Level 3 (95600) Diagnoses Alcohol use disorder, severe, dependence F10.20
[2024-01-05 14:05] VITALS: BP 102/74; PULSE 79; O2SAT 99
== END 2024-01-05 14:24 | disposition home or self-care (01) ==
PROVIDERS: Visit Provider Nurse Practitioner Family
DX: Z51.81 Encounter for therapeutic drug level monitoring (principal); F10.20 Alcohol dependence, uncomplicated
CPT/HCPCS: 99213

== ENCOUNTER → 2024-01-05 13:50 | Outpatient (BNVA) | payer OTHER, SELFPAY | PROVIDERS: Visit Provider Nurse Practitioner Family | DX: F10.20 Alcohol dependence, uncomplicated (principal) | CPT/HCPCS: 80305 ==